=== PATIENT | male | born 1995 | race African-American/Black ===

== ENCOUNTER 2017-07-10 16:53 | Inpatient (IN) | payer OTHER ==
[~2017-07-10] VITALS: Ht 180.3 cm; Wt 76.4 kg
[2017-07-10] MEDS ORDERED: ceFAZolin 2 GM PREMIX 50 ML ONE (16:59)
[2017-07-10 17:11] VITALS: O2SAT 97
[2017-07-10 17:17] LABS: I-STAT POTASSIUM 3.5 MMOL/L (3.5-4.9)
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
[2017-07-10 17:19] LABS: AUTOMATED NEUTROPHIL # 3.8 TH/MM3 (1.8-7.7); BASOPHIL % 0.4 % (0.0-2.0); EOSINOPHIL # 0.4 TH/MM3 (0-0.4); EOSINOPHIL % 3.6 % (0.0-4.0); HEMATOCRIT 38.9 % (39.0-51.0); LYMPH % 49.8 % (9.0-44.0); LYMPHOCYTE # 4.9 TH/MM3 (1.0-4.8); MEAN CELL VOLUME 90.4 FL (80.0-100.0); MEAN CORPUSCULAR HEMOGLOBIN 30.3 PG (27.0-34.0); MEAN CORPUSCULAR HGB CONC 33.5 % (32.0-36.0); MONO % 7.7 % (0.0-8.0); NEUT % 38.5 % (16.0-70.0); PLATELET COUNT 273 TH/MM3 (150-450); RED CELL DISTRIBUTION WIDTH 12.4 % (11.6-17.2); WHITE BLOOD COUNT 9.9 TH/MM3 (4.0-11.0)
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
[2017-07-10 17:20] LABS: HEMO FLAGS AUTO DIFF
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
[2017-07-10] MEDS ORDERED: IOHEXOL 350 MG/ML 10 ML VIAL (for RAD DIAG) IVCONTRAST ONE (17:26)
[2017-07-10 17:27] LABS: APTT (PATIENT) 22.4 SEC (24.3-30.1); INTERNATIONAL NORMALIZED RATIO 1.2 RATIO; PROTHROMBIN TIME - PATIENT 11.9 SEC (9.8-11.6)
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
[2017-07-10 17:47] LABS: PLATELET ESTIMATE SMEAR NORMAL (NORMAL); PLATELET MORPHOLOGY NORMAL (NORMAL); SCAN/DIFF AUTO DIFF CONFIRMED
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
[2017-07-10] MEDS ORDERED: HYDROmorphone HCL PF 1 MG/ML VIAL ONE (17:53)
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
[2017-07-10] MEDS ORDERED: BISACODYL 10 MG SUPP RECTAL PRN (18:15)
[2017-07-10] MEDS ORDERED: SENNOSIDES 8.6 MG TAB PO PRN (18:15)
[2017-07-10] MEDS ORDERED: CHLORHEXIDINE GLUCONATE 2 % 1 PACK (2 CLOTHS) TOP PRN (18:15)
[2017-07-10] MEDS ORDERED: ONDANSETRON HCL 4 MG/2 ML VIAL IV PUSH PRN (18:15)
[2017-07-10] MEDS ORDERED: MAGNESIUM HYDROXIDE SUSP 30 ML CUP PO PRN (18:15)
[2017-07-10] MEDS ORDERED: LACTULOSE SYRUP 20 GM/30 ML CUP PO PRN (18:15)
[2017-07-10] MEDS ORDERED: MORPHINE SULFATE 2 MG/ML INJ IV PUSH PRN (18:15)
[2017-07-10] MEDS ORDERED: HYDROmorphone HCL PF 1 MG/ML VIAL IV PUSH PRN (18:15)
[2017-07-10] MEDS ORDERED: MISCELLANEOUS NURSING INFORMATION XX SCH (18:15)
[2017-07-10] MEDS ORDERED: NALOXONE HCL 0.4 MG/ML AMP IV PUSH PRN (18:45)
[2017-07-10] MEDS: ACETAMINOPHEN 1000 MG/100 ML 100 ML IV SCH (18:51)
[2017-07-10] MEDS: SODIUM CHLOR 0.9% 1000 ML INJ 1,000 ML IV SCH (18:51)
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
[2017-07-10] MEDS ORDERED: LIDOCAINE 1%/EPINEPHrine 1:100,000 SOLN 20 ML VIAL INFIL ONE (19:00)
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
[2017-07-10 19:03] VITALS: BP 138/71; RESP 16; O2SAT 98
[2017-07-10] MEDS ORDERED: HYDROmorphone HCL PF 2 MG/ML VIAL IV PUSH ONE (19:15)
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
[2017-07-10 20:30] VITALS: BP 134/69; PULSE 94; RESP 24; TEMP 98.6; O2SAT 96
[2017-07-10] MEDS: DOCUSATE SODIUM 50 MG/SENNA 8.6 MG TAB PO SCH (21:00)
[2017-07-10] MEDS: HYDROmorphone HCL PCA 6 MG/30 ML IV SCH (21:12)
[2017-07-10 22:00] VITALS: PULSE 66
[2017-07-10] MEDS: PCA - TOTAL MG DILAUDID DELIVERED PER SHIFT OTHER SCH (22:30)
[2017-07-10] MEDS ORDERED: METOPROLOL TARTRATE 25 MG TAB PO PRN (23:15)
[2017-07-10] MEDS ORDERED: INSULIN HUMAN REGULAR 1,000 UNITS/10 ML VIAL SQ PRN (23:15)
[2017-07-10] MEDS ORDERED: SODIUM CHLORID 0.9% 500 ML IV PRN (23:15)
[2017-07-10] MEDS ORDERED: POVIDONE IODINE 5% (ANTISEPSIS KIT) 4 APPLICATIONS EACH NARE PRN (23:15)
[2017-07-10] MEDS ORDERED: CHLORHEXIDINE GLUCONATE 2 % 1 PACK (2 CLOTHS) TOPICAL PRN (23:15)
[2017-07-10] MEDS ORDERED: LACTATED RINGER'S 1000 ML IV PRN (23:15)
[2017-07-11] VITALS (8 sets, daily range): BP systolic 125–140; BP diastolic 66–76; PULSE 62–82; RESP 9–16; TEMP 96.5–98.9; O2SAT 96–100
[2017-07-11] MEDS: ACETAMINOPHEN 1000 MG/100 ML 100 ML IV SCH ×3 (00:22→12:15)
[2017-07-11] MEDS: CHLORHEXIDINE GLUCONATE 2 % 1 PACK (2 CLOTHS) TOP SCH (01:17)
[2017-07-11 05:23] LABS: AUTOMATED NEUTROPHIL # 5.5 TH/MM3 (1.8-7.7); BASOPHIL % 0.3 % (0.0-2.0); EOSINOPHIL % 0.1 % (0.0-4.0); HEMATOCRIT 35.7 % (39.0-51.0); HEMO FLAGS DIFF FINAL; LYMPHOCYTE # 1.6 TH/MM3 (1.0-4.8); MEAN CELL VOLUME 90.7 FL (80.0-100.0); MEAN CORPUSCULAR HEMOGLOBIN 31.1 PG (27.0-34.0); MEAN CORPUSCULAR HGB CONC 34.3 % (32.0-36.0); MONO % 9.7 % (0.0-8.0); NEUT % 69.9 % (16.0-70.0); PLATELET COUNT 223 TH/MM3 (150-450); RED BLOOD COUNT 3.93 MIL/MM3 (4.50-5.90); RED CELL DISTRIBUTION WIDTH 12.7 % (11.6-17.2); WHITE BLOOD COUNT 7.9 TH/MM3 (4.0-11.0)
[2017-07-11] MEDS: SODIUM CHLOR 0.9% 1000 ML INJ 1,000 ML IV SCH (05:32)
[2017-07-11 05:51] LABS: BICARBONATE 26.5 MEQ/L (21.0-32.0)
[2017-07-11] MEDS: PCA - TOTAL MG DILAUDID DELIVERED PER SHIFT OTHER SCH (06:10)
[2017-07-11] MEDS: HYDROmorphone HCL PCA 6 MG/30 ML IV SCH (06:58)
[2017-07-11] MEDS: DOCUSATE SODIUM 50 MG/SENNA 8.6 MG TAB PO SCH ×2 (09:00→21:49)
[2017-07-11] MEDS ORDERED: MAGNESIUM HYDROXIDE SUSP 30 ML CUP PO SCH (09:00)
[2017-07-11] MEDS ORDERED: PERI PO (09:01)
[2017-07-11] MEDS ORDERED: MAGN30S PO (09:01)
[2017-07-11] MEDS ORDERED: VANCOMYCIN HCL 1000 MG VIAL ONE (11:02)
[2017-07-11] MEDS ORDERED: GENTAMICIN SULFATE 80 MG/2 ML VIAL ONE (11:02)
[2017-07-11] MEDS ORDERED: ceFAZolin INJ 1,000 MG VIAL ONE (11:03)
[2017-07-11] MEDS ORDERED: BUPIVACAINE/EPINEPHRINE 0.5% PF 30 ML VIAL ONE (11:11)
--- NOTE | 2017-07-11 12:51 | RADRPT ---
EXAM DATE/TIME: 07/11/2017 12:36 [facility] COMPARISON: WRIST RIGHT LIMITED(AP & LAT), July 10, 2017, 16:54. INDICATIONS : Post hardware placement right forearm MEDICAL HISTORY : SURGICAL HISTORY : None. ENCOUNTER: Subsequent ACUITY: 2 days PAIN SCORE: Non-responsive. LOCATION: Right Forearm FINDINGS: Images and the operating room show screw and plate fixation of mid shaft fracture of the right radius and distal shaft fracture of the right ulna. Alignment is near-anatomic. No new fractures are demons trated. CONCLUSION: Open reduction and screw and plate fixation of mid to distal shaft fractures of the right radius and ulna. Normal alignment. No evidence of an acute complication. Rustam Bloom MD on July 11, 2017 at 12:48 Board Certified Radiologist. This report was verified electronically.
--- NOTE | 2017-07-11 12:59 | PD.OP ---
cc: Chase Garrison MD Operative Report Date of Surgery: Jul 11, 2017 Preoperative Diagnosis: Right forearm radius and ulnar shaft fractures. Right upper and lower arm numbness. Postoperative Diagnosis: Same Procedure: Right radius and ulnar shaft fractures open reduction and internal fixation Anesthesia: Gen. Surgeon: Chase Garrison Paper Bag Inspector(s): LOREN Dougherty The surgical procedure was assisted by my Advanced Registered Nurse Practitioner. My DEVELOPER ANALYST presence was necessary throughout this case for the manipulation and positioning of the surgical extremity. My DEVELOPER ANALYST was assisting me throughout the duration of this procedure. The skill set of an Advance Registered Nurse Practitioner was medically necessary to complete this procedure. During the surgical case, the cardiovascular technician was working at the back table and the Advance Registered Nurse Practitioner was directly assisting me. Operation and Findings: Tourniquet time: 62 minutes at 250 mmHg of pressure Estimated blood loss: 50 cc The patient received intravenous Ancef. After the appropriate anesthesia was administered, the patient's arm was prepped and draped in the usual sterile fashion. Note that there were extensive abrasions noted about the forearm including distally near the end of the volar incision region. We cleaned this very well. There were no specific open wounds however. The compartments were reassessed. There were soft with mild swelling. There is no evidence of compartment syndrome. The arm was exsanguinated. The tourniquet was raised to 250 mmHg of pressure. We made standard volar incision. We dissected in the standard approach between the brachioradialis and the flexor carpi radialis. We dissected between the superficial radial nerve and the radial artery. We protected the branches of the radial artery. We dissected and reflected the flexor digitorum superficialis in pronation. We identified the proximal fragment We reflected the pronator off of the proximal fragment. There was local comminution noted. We anatomically reduced the radial shaft fracture. We contoured a plate by bending it to re-create the normal radial bow. We secured this 8 hole plate using 6 screws, nonlocking screws distally and locking screws proximally. We verified anatomic alignment on fluoroscopy. We made standard incision over the ulnar aspect of the forearm. We dissected between the flexor and extensor group. We needed to anatomically reduce the fracture as it was significantly displaced. There was local comminution. We evaluated several different plates and ultimately went with the 2.7 locking plate as this had the best combination of strength, screw positions and low- profile. We used an 8 hole plate and filled 6 of these holes with nonlocking screws with excellent purchase. The very distal screw was a locking screw. We took final fluoroscopic imaging showing anatomic alignment of both bones. The forearm had full range of motion including rotation. Tourniquet was released. Hemostasis was achieved. Skin was closed with 2-0 Vicryl and 2-0 nylon. The patient was placed into a splint. Postoperative plan is early range of motion. Additionally, the patient continued to have the numbness not only of the hand prior to surgery but also of the elbow and the upper arm to evaluation prior to going back to surgery this morning. I did review his MRI of the cervical spine which was essentially unremarkable as far as a source for this. Therefore, I have ordered an MRI of the right brachial plexus. Chase Garrison MD Jul 11, 2017 12:59
[2017-07-11] MEDS ORDERED: HYDR-3288 PO (13:00)
[2017-07-11] MEDS ORDERED: MISCELLANEOUS NURSING INFORMATION XX PRN (13:00)
[2017-07-11] MEDS ORDERED: diphenhydrAMINE HCL 25 MG CAP PO PRN (13:00)
[2017-07-11] MEDS ORDERED: MISCELLANEOUS PHARMACY INFORMATION XX ONE (13:00)
[2017-07-11] MEDS ORDERED: MAGNESIUM HYDROXIDE SUSP 30 ML CUP PO PRN (13:00)
[2017-07-11] MEDS ORDERED: Post-op Orders (for Pharmacy) XX ONE (13:00)
[2017-07-11] MEDS ORDERED: NALOXONE HCL 0.4 MG/ML AMP IV PUSH PRN (13:00)
[2017-07-11] MEDS ORDERED: ACETAMINOPHEN/HYDROcodone 325 MG/7.5 MG TAB PO PRN (13:00)
[2017-07-11] MEDS ORDERED: DO NOT ADM ANY ANTICOAGULANT DRUGS PRN (13:49)
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
[2017-07-11] MEDS: DEXT 5%-NACL 0.45% 1000 ML INJ 1,000 ML IV SCH (15:55)
[2017-07-11] MEDS: ENOXAPARIN SODIUM 30 MG/0.3 ML SYRINGE SQ SCH (16:15)
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
[2017-07-11] MEDS: MORPHINE SULFATE 2 MG/ML INJ IV PUSH PRN (22:31)
[2017-07-12] VITALS (7 sets, daily range): BP systolic 119–133; BP diastolic 67–72; PULSE 72–99; RESP 16–19; TEMP 96.2–97.9; O2SAT 98–100
[2017-07-12] MEDS: DEXT 5%-NACL 0.45% 1000 ML INJ 1,000 ML IV SCH ×2 (01:42→08:50)
[2017-07-12] MEDS: MORPHINE SULFATE 2 MG/ML INJ IV PUSH PRN ×2 (02:41→14:08)
[2017-07-12] MEDS: CHLORHEXIDINE GLUCONATE 2 % 1 PACK (2 CLOTHS) TOP SCH (04:00)
[2017-07-12] MEDS: ACETAMINOPHEN/HYDROcodone 325 MG/7.5 MG TAB PO PRN ×2 (04:17→12:31)
[2017-07-12] MEDS: ENOXAPARIN SODIUM 30 MG/0.3 ML SYRINGE SQ SCH ×2 (04:17→16:15)
[2017-07-12 05:49] LABS: BICARBONATE 29.3 MEQ/L (21.0-32.0); POTASSIUM 3.6 MEQ/L (3.5-5.1)
[2017-07-12 05:58] LABS: AUTOMATED NEUTROPHIL # 5.3 TH/MM3 (1.8-7.7); BASOPHIL % 0.1 % (0.0-2.0); EOSINOPHIL % 0.5 % (0.0-4.0); HEMATOCRIT 33.5 % (39.0-51.0); HEMO FLAGS DIFF FINAL; LYMPH % 15.6 % (9.0-44.0); LYMPHOCYTE # 1.2 TH/MM3 (1.0-4.8); MEAN CELL VOLUME 91.2 FL (80.0-100.0); MEAN CORPUSCULAR HEMOGLOBIN 30.8 PG (27.0-34.0); MEAN CORPUSCULAR HGB CONC 33.7 % (32.0-36.0); MONO % 12.7 % (0.0-8.0); NEUT % 71.1 % (16.0-70.0); PLATELET COUNT 210 TH/MM3 (150-450); RED BLOOD COUNT 3.68 MIL/MM3 (4.50-5.90); RED CELL DISTRIBUTION WIDTH 12.5 % (11.6-17.2); WHITE BLOOD COUNT 7.5 TH/MM3 (4.0-11.0)
[2017-07-12] MEDS: ONDANSETRON HCL 4 MG/2 ML VIAL IVP PRN (09:20)
[2017-07-12] MEDS: DOCUSATE SODIUM 50 MG/SENNA 8.6 MG TAB PO SCH ×2 (09:26→22:00)
[2017-07-12] MEDS: MULTIVITAMINS/MINERALS THERAPEUTIC TAB PO SCH (09:26)
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
--- NOTE | 2017-07-12 12:46 | PD.ORT.PN ---
Subjective Post Op Day #: 1 Subjective Remarks The patient is resting in bed with c/o no sensation or movement of the right hand. Patient denies any specific pain to the RUE secondary to decreased sensation. Objective Vitals Vital Signs Date Time Temp Pulse Resp B/P (MAP) Pulse Ox O2 Delivery O2 Flow Rate FiO2 07/12/17 08:00 97.8 85 18 132/68 (89) 100 07/12/17 07:24 99 21 07/12/17 04:17 97.9 74 16 133/72 (92) 100 07/12/17 00:26 97.0 72 16 126/71 (89) 100 07/11/17 22:36 18 07/11/17 20:41 100 Nasal Cannula 2.00 07/11/17 20:05 96.5 64 16 128/74 (92) 100 07/11/17 18:00 77 07/11/17 16:00 98.7 66 13 130/76 (94) 100 07/11/17 16:00 66 07/11/17 15:30 81 15 134/80 (98) 96 Nasal Cannula 2 07/11/17 15:00 79 15 136/78 (97) 96 Nasal Cannula 2 07/11/17 14:30 97.9 74 17 137/70 (92) 96 Nasal Cannula 2 07/11/17 14:15 74 17 137/70 (92) 96 Nasal Cannula 2 07/11/17 14:00 75 15 151/70 (97) 96 Nasal Cannula 2 07/11/17 13:49 97.8 86 15 125/64 (84) 100 Nasal Cannula 2 I/O 07/11/17 07/11/17 07/11/17 07/12/17 07/12/17 07/12/17 07:00 15:00 23:00 07:00 15:00 23:00 Intake Total 212 ml 1800 ml 540 ml 240 ml Output Total 650 ml 1050 ml Balance -438 ml 750 ml 540 ml 240 ml Intake Oral 60 ml 240 ml 240 ml IV Total 152 ml 1800 ml 300 ml Output Urine Total 650 ml 1000 ml Estimated Blood Loss 50 ml # Voids 5 2 # Bowel Movements 0 0 0 Result Diagram: 07/12/1752407/12/17524 Procedures Left forearm midshaft radius and ulna fractures Objective Remarks The patient's splint and dressings are intact. Sling in place. Patient has no sensation or movement of the right hand. Mild swelling to the hand and fingers. Patient has sensation to light touch about the elbow and shoulder. Patient has BCR and good warmth to the right hand and fingers. Dressing removed and FA assessed to evaluate compartments and soft tissues. Compartments semi tight but no compartment syndrome noted. Last 48 hours Impressions Radius/Ulna X-Ray 07/11/17 Signed Impressions: Service Date/Time: Tuesday, July 11, 2017 12:36 - CONCLUSION: Open reduction and screw and plate fixation of mid to distal shaft fractures of the right radius and ulna. Normal alignment. No evidence of an acute complication. Rustam Bloom MD Brachial Plexus MRI 07/11/17 Signed Impressions: Service Date/Time: Tuesday, July 11, 2017 14:46 - CONCLUSION: 1. There is abnormal edema extending from the base of the neck on the right side into the right axillary area in a pattern suspicious for an avulsion type injury of the brachial plexus. 2. Questionable edema in the mid to lower body of the spinal cord. However, this was not present on the prior recent MRI of the cervical spine suggesting this may be artifactual. Recommend correlation with patient's physical and clinical exam. Rashaad Reagan MD Thoracic Spine CT [id number]/[id number] Signed Impressions: Service Date/Time: Monday, July 10, 2017 17:09 - CONCLUSION: Unremarkable CT scan of the thoracic spine. Rashaad Reagan MD Pelvis X-Ray [id number] Signed Impressions: Service Date/Time: Monday, July 10, 2017 16:54 - CONCLUSION: Unremarkable examination of the pelvis. Gabriel Romero MD Lumbar Spine CT [id number] Signed Impressions: Service Date/Time: Monday, July 10, 2017 17:09 - CONCLUSION: Unremarkable CT scan of the lumbar spine. Rashaad Reagan MD Head CT [id number]/10/171704 Signed Impressions: Service Date/Time: Monday, July 10, 2017 17:02 - CONCLUSION: 1. No acute intracranial abnormalities. Mucosal thickening in left maxillary sinus. Mild scalp swelling. Gabriel Romero MD Chest X-Ray [id number]/10/171704 Signed Impressions: Service Date/Time: Monday, July 10, 2017 16:54 - CONCLUSION: Limited study. No acute pulmonary infiltrates. A CT thorax will be performed. Rashaad Reagan MD Chest CT [id number]/171704 Signed Impressions: Service Date/Time: Monday, July 10, 2017 17:09 - CONCLUSION: Unremarkable CT thorax. Rashaad Reagan MD Cervical Spine CT [id number]/10/171704 Signed Impressions: Service Date/Time: Monday, July 10, 2017 17:04 - CONCLUSION: Unremarkable CT scan of the cervical spine. No acute bony fractures.. Rashaad Reagan MD Abdomen/Pelvis CT [id number]/10/[id number] Signed Impressions: Service Date/Time: Monday, July 10, 2017 17:09 - CONCLUSION: Unremarkable CT scan of the abdomen and pelvis. Rashaad Reagan MD I have reviewed the MRI result and findings and agree with the radiologists interpretation Assessment & Plan Ortho Post Op Day #: 1 Problem List: Assessment and Plan POD #1: ORIF of right midshaft radius and ulna fractures Brachial Plexus avulsion injury confirmed with MRI 1. NWB RUE 2. Maintain splint and sling. 3. Ice machine to the RUE for swelling. 4. Neurosurgery to follow Brachial Plexus injury. Dr. Willson aware. 5. Orthopaedically stable for discharge once medically cleared and once cleared by Neurosurgery 6. Patient will f/u in the office in 1-[address] Garrison or LOREN Roth. Brayden Mulligan Jul 12, 2017 12:46
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
[2017-07-12] MEDS: LACTULOSE SYRUP 20 GM/30 ML CUP PO SCH (15:15)
[2017-07-12] MEDS ORDERED: HYDROmorphone HCL PF 2 MG/ML VIAL IV PUSH PRN (15:15)
[2017-07-12] MEDS ORDERED: oxyCODONE/ACETAMINOPHEN 5 MG/325 MG TAB PO PRN (15:15)
[2017-07-12] MEDS: GABAPENTIN 300 MG CAP PO SCH (17:56)
[2017-07-12] MEDS: oxyCODONE/ACETAMINOPHEN 7.5 MG/325 MG TAB PO PRN ×2 (17:56→21:57)
[2017-07-13 03:00] VITALS: BP 132/75; PULSE 79; RESP 19; TEMP 97.6; O2SAT 98
[2017-07-13] MEDS: oxyCODONE/ACETAMINOPHEN 7.5 MG/325 MG TAB PO PRN ×3 (05:10→15:40)
[2017-07-13] MEDS: ENOXAPARIN SODIUM 30 MG/0.3 ML SYRINGE SQ SCH ×2 (05:10→15:49)
[2017-07-13 07:45] VITALS: BP 139/82; PULSE 59; RESP 17; TEMP 98.4; O2SAT 99
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
[2017-07-13] MEDS: LACTULOSE SYRUP 20 GM/30 ML CUP PO SCH (10:11)
[2017-07-13] MEDS: DOCUSATE SODIUM 50 MG/SENNA 8.6 MG TAB PO SCH ×2 (10:11→22:12)
[2017-07-13] MEDS: MULTIVITAMINS/MINERALS THERAPEUTIC TAB PO SCH (10:11)
[2017-07-13] MEDS: GABAPENTIN 300 MG CAP PO SCH ×3 (10:11→18:00)
[2017-07-13 11:52] VITALS: BP 132/77; PULSE 76; RESP 17; TEMP 98.2; O2SAT 100
[2017-07-13] MEDS: ONDANSETRON HCL 4 MG/2 ML VIAL IVP PRN (12:32)
[2017-07-13] MEDS: SODIUM CHLOR 0.9% 1000 ML INJ 1,000 ML IV SCH (15:15)
[2017-07-13 16:00] VITALS: BP 136/71; PULSE 71; RESP 17; TEMP 97.6; O2SAT 100
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
[2017-07-13 21:35] VITALS: BP 142/76; PULSE 70; RESP 17; TEMP 98.7; O2SAT 99
[2017-07-14 01:04] VITALS: BP 147/79; PULSE 66; RESP 16; TEMP 98.8; O2SAT 100
[2017-07-14] MEDS: SODIUM CHLOR 0.9% 1000 ML INJ 1,000 ML IV SCH (02:34)
[2017-07-14] MEDS: ENOXAPARIN SODIUM 30 MG/0.3 ML SYRINGE SQ SCH ×2 (04:40→16:35)
[2017-07-14] MEDS: oxyCODONE/ACETAMINOPHEN 7.5 MG/325 MG TAB PO PRN (04:46)
[2017-07-14 05:00] VITALS: BP 146/88; PULSE 81; RESP 17; TEMP 96.3; O2SAT 99
[2017-07-14 06:24] LABS: BICARBONATE 24.1 MEQ/L (21.0-32.0); POTASSIUM 4.7 MEQ/L (3.5-5.1)
--- NOTE | 2017-07-14 07:06 | HHI.FF ---
Face to Face Verification Diagnosis: (1) Radius/ulna fracture (2) Brachial plexus injury Physical Therapy Order: Evaluate and Treat, Improve ambulation, Strength and gait training Home Health Nursing Order: Nursing assessment with vital signs I have seen patient Oscar Ríos on 07/14/17. My clinical findings support the need for the requested home health care services because: Limited ability to care for self High risk of falls I certify that my clinical findings support that this patient is homebound because: Post-op weakness Unsteady gait/balance Jerson Delgado Jul 14, 2017 07:06
[2017-07-14 07:45] VITALS: BP 129/79; PULSE 62; RESP 18; TEMP 97.9; O2SAT 98
[2017-07-14] MEDS ORDERED: MAGNESIUM CITRATE SOLN 300 ML BTL PO ONE (08:00)
[2017-07-14] MEDS: LACTULOSE SYRUP 20 GM/30 ML CUP PO SCH (09:00)
[2017-07-14] MEDS: DOCUSATE SODIUM 50 MG/SENNA 8.6 MG TAB PO SCH ×2 (09:48→22:12)
[2017-07-14] MEDS: MULTIVITAMINS/MINERALS THERAPEUTIC TAB PO SCH (09:48)
[2017-07-14] MEDS: GABAPENTIN 300 MG CAP PO SCH ×3 (09:48→16:34)
[2017-07-14] MEDS: ONDANSETRON HCL 4 MG/2 ML VIAL IVP PRN (09:49)
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
[2017-07-14] MEDS: BACITRACIN TOP OINT 15 GM TUBE TOPICAL SCH (10:30)
[2017-07-14 11:33] LABS: AUTOMATED NEUTROPHIL # 4.5 TH/MM3 (1.8-7.7); BASOPHIL % 0.3 % (0.0-2.0); EOSINOPHIL # 0.2 TH/MM3 (0-0.4); EOSINOPHIL % 2.5 % (0.0-4.0); HEMATOCRIT 30.4 % (39.0-51.0); HEMO FLAGS DIFF FINAL; LYMPH % 21.9 % (9.0-44.0); LYMPHOCYTE # 1.5 TH/MM3 (1.0-4.8); MEAN CELL VOLUME 90.7 FL (80.0-100.0); MEAN CORPUSCULAR HEMOGLOBIN 30.5 PG (27.0-34.0); MEAN CORPUSCULAR HGB CONC 33.6 % (32.0-36.0); MONO % 10.5 % (0.0-8.0); NEUT % 64.8 % (16.0-70.0); PLATELET COUNT 242 TH/MM3 (150-450); RED BLOOD COUNT 3.35 MIL/MM3 (4.50-5.90); RED CELL DISTRIBUTION WIDTH 12.4 % (11.6-17.2); WHITE BLOOD COUNT 6.9 TH/MM3 (4.0-11.0)
[2017-07-14 11:43] VITALS: BP 147/90; PULSE 79; RESP 18; TEMP 97.6; O2SAT 99
[2017-07-14] MEDS: METOCLOPRAMIDE HCL 10 MG/2 ML VIAL IV PUSH SCH ×2 (14:23→22:11)
[2017-07-14 15:48] VITALS: BP 141/82; PULSE 75; RESP 18; TEMP 97; O2SAT 100
[2017-07-14] MEDS: ACETAMINOPHEN/HYDROcodone 325 MG/5 MG TAB PO PRN ×2 (16:35→22:17)
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
[2017-07-14] MEDS ORDERED: WALKER/FOLDING1 MIS (19:29)
[2017-07-14 20:00] VITALS: BP 143/77; PULSE 67; RESP 16; TEMP 99.5; O2SAT 100
[2017-07-15 00:57] VITALS: BP 138/79; PULSE 68; RESP 16; TEMP 99.2; O2SAT 100
[2017-07-15] MEDS: ENOXAPARIN SODIUM 30 MG/0.3 ML SYRINGE SQ SCH (05:37)
[2017-07-15] MEDS: ACETAMINOPHEN/HYDROcodone 325 MG/5 MG TAB PO PRN (05:40)
[2017-07-15] MEDS: METOCLOPRAMIDE HCL 10 MG/2 ML VIAL IV PUSH SCH ×2 (05:44→14:00)
[2017-07-15 08:00] VITALS: BP 139/69; PULSE 68; RESP 18; TEMP 98; O2SAT 98
[2017-07-15] MEDS: MULTIVITAMINS/MINERALS THERAPEUTIC TAB PO SCH (08:39)
[2017-07-15] MEDS: GABAPENTIN 300 MG CAP PO SCH ×2 (08:39→13:11)
[2017-07-15] MEDS: DOCUSATE SODIUM 50 MG/SENNA 8.6 MG TAB PO SCH (08:39)
[2017-07-15] MEDS: BACITRACIN TOP OINT 15 GM TUBE TOPICAL SCH (08:40)
[2017-07-15] MEDS: LACTULOSE SYRUP 20 GM/30 ML CUP PO SCH (08:40)
[2017-07-15] MEDS: ACETAMINOPHEN/HYDROcodone 325 MG/7.5 MG TAB PO PRN ×2 (10:10→13:12)
[2017-07-15 12:00] VITALS: BP 133/69; PULSE 67; RESP 16; TEMP 98.7; O2SAT 99
[2017-07-15] MEDS ORDERED: NORC5TAB PO (12:17)
[2017-07-15] MEDS ORDERED: ZOFR4TAB3 SL (12:42)
[2017-07-15] MEDS ORDERED: HYDR-3516 PO (12:42)
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
== END 2017-07-15 15:32 | disposition home or self-care (01) | DRG 957 ==
LOC: NEPI 16:53 → NEDA 17:12 → EDBD 17:12 → N03B 20:18 → N06A 07-11 18:30
PROVIDERS: ADMIT Surgery Trauma Surgery; ATTEND Surgery Trauma Surgery
PROC: 0PSK04Z Reposition Right Ulna with Internal Fixation Device, Open Approach (ICD-10-PCS; 2017-07-11)
PROC: 0PSH04Z Reposition Right Radius with Internal Fixation Device, Open Approach (ICD-10-PCS; principal; 2017-07-11 10:52)
DX: S52.501A Unspecified fracture of the lower end of right radius, initial encounter for closed fracture (principal); G95.19 Other vascular myelopathies; S06.9X9A Unspecified intracranial injury with loss of consciousness of unspecified duration, initial encounter; S14.3XXA Injury of brachial plexus, initial encounter; M41.9 Scoliosis, unspecified; N48.30 Priapism, unspecified; S52.611A Displaced fracture of right ulna styloid process, initial encounter for closed fracture; S61.011A Laceration without foreign body of right thumb without damage to nail, initial encounter; S40.812A Abrasion of left upper arm, initial encounter; S40.811A Abrasion of right upper arm, initial encounter; S80.812A Abrasion, left lower leg, initial encounter; S80.811A Abrasion, right lower leg, initial encounter; F12.90 Cannabis use, unspecified, uncomplicated; V29.9XXA Motorcycle rider (driver) (passenger) injured in unspecified traffic accident, initial encounter; Y92.410 Unspecified street and highway as the place of occurrence of the external cause
CPT/HCPCS: 70450; 71010; 71260; 72125; 72128; 72131; 72141; 72170; 73090; 73100; 73110; 73218; 74177; 76000; 80048; 82435; 82565; 82947; 84132; 84295; 84520; 85025; 85610; 85730; 86850; 86900; 86901; 87641; 94150; C1713; J0131; J0690; J1170; J1580; J1650; J2270; J2405; J2765; J3010; J3370; J7030; L0150; Q9967

== ENCOUNTER 2017-07-19 17:51 | Emergency (ER) | payer OTHER ==
[~2017-07-19] VITALS: Ht 180.3 cm; Wt 63.6 kg
[~2017-07-19 17:51] MED LIST: HYDR-3516 PO; MAGN30S PO; PERI PO; WALKER/FOLDING1 MIS; ZOFR4TAB3 SL
[2017-07-19 17:55] VITALS: BP 132/88; PULSE 104; RESP 14; TEMP 97.9; O2SAT 98
[2017-07-19] MEDS ORDERED: POVIDONE IODINE 10% OINT 30 GM TUBE TOPICAL ONE (21:15)
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
[2017-07-19] MEDS ORDERED: CYCL10TA PO (22:29)
[2017-07-19] MEDS ORDERED: ORPHENADRINE INJ 60 MG/2 ML AMP IM ONE (22:30)
[2017-07-19] MEDS ORDERED: CYCLOBENZAPRINE HCL 10 MG TAB PO ONE (22:45)
== END 2017-07-19 23:00 | disposition home or self-care (01) ==
LOC: NEPE 17:51
DX: S61.411D Laceration without foreign body of right hand, subsequent encounter (principal)
CPT/HCPCS: 70450; 96372